=== PATIENT | male | born 1975 | race Caucasian/White ===

== ENCOUNTER 2019-01-16 20:44 | Emergency (ER) | payer OTHER ==
[2019-01-16] MEDS ORDERED: Cyclobenzaprine 10 MG Tab PO ONE (20:45)
[2019-01-17 00:13] VITALS: BP 121/92; PULSE 60
--- NOTE | 2019-01-17 01:26 | EDM.PDOC ---
ED HPI GENERAL MEDICAL PROBLEM - General Chief Complaint: Back Pain or Injury Stated Complaint: WORKERS COMP, BACK INJURY Time Seen by Provider: 01/17/19 01:19 Source of Information: Reports: Patient - History of Present Illness INITIAL COMMENTS - FREE TEXT/NARRATIVE: mid back pain, radiates to left shoulder blade and left buttock. 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 Denies prior back injury. No numbness or tingling. Has taken ibuprofen right after injury. 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, NSAIDS Left Lower Back Pain Score (Numeric/FACES): 3 - Related Data Allergies Allergy/AdvReac Type Severity Reaction Status Date / Time codeine Allergy Severe Anaphylactic Verified 09/05/14 14:23 MST Shock Home Meds: Home Meds Acetaminophen/oxyCODONE [Percocet 325-5 MG] 1 each PO Q6HR PRN #14 tab 09/05/14 [Rx] Tamsulosin [Tamsulosin 24 Hr] 0.4 mg PO DAILY #7 cap.er 09/05/14 [Rx] Lisinopril 10 mg PO DAILY 02/08/18 [History] Past Medical History - Past Health History Medical/Surgical History: Denies Medical/Surgical History Neurological History: Reports: CVA Social & Family History - Family History Family Medical History: Noncontributory - Tobacco Use Smoking Status *Q: Unknown Ever Smoked Second Hand Smoke Exposure: No - Caffeine Use Caffeine Use: Reports: Soda ED ROS GENERAL - Review of Systems Review Of Systems: ROS reveals no pertinent complaints other than HPI. ED EXAM,LOWER BACK PAIN/INJURY - Physical Exam Exam: See Below Exam Limited By: No Limitations General Appearance: Alert, Mild Distress Eye Exam: Bilateral Eye: EOMI Ears: Normal External Exam Nose: Normal Inspection Throat/Mouth: Normal Inspection Head: Atraumatic, Normocephalic Neck: Normal Inspection, Full Range of Motion Respiratory/Chest: No Respiratory Distress Cardiovascular: Normal Peripheral Pulses, Regular Rate, Rhythm Back Exam: Full Range of Motion, Muscle Spasm (left mid to low lumbar), Paraspinal Tenderness. No: Vertebral Tenderness Extremities: Normal Range of Motion Neurological: Alert, Normal Mood/Affect, Normal Dorsiflexion, Normal Plantar Flexion, Normal Gait, No Motor/Sensory Deficits, Oriented x 3 Psychiatric: Normal Affect Skin Exam: Warm, Dry, Intact, Normal Color Course - Vital Signs Last Recorded V/S: Last Vital Signs Temp 97.8 F 01/17/19 00:10 Pulse 60 01/17/19 00:10 Resp 18 01/17/19 00:10 BP 121/92 H 01/17/19 00:10 Pulse Ox 100 01/17/19 00:10 - Orders/Labs/Meds Meds: Medications Discontinued Medications Generic Name Dose Route Start Last Admin Trade Name Freq PRN Reason Stop Dose Admin Cyclobenzaprine HCl Confirm 01/17/19 01:28 Flexeril Administered 01/17/19 01:29 Dose 20 mg .ROUTE .STK-MED ONE Departure - Departure Time of Disposition: 01:34 Disposition: Home, Self-Care 01 Condition: Good Clinical Impression: Back pain due to injury - Discharge Information *PRESCRIPTION DRUG MONITORING PROGRAM REVIEWED*: No *COPY OF PRESCRIPTION DRUG MONITORING REPORT IN PATIENT KEN: No Instructions: Back Exercises, [id number] Forms: ED Department Discharge Additional Instructions: ice to back area light activity off work x 2 nights may return if symptoms resolved Recheck clinic early next week ibuprofen 600mg every 6 hours as needed for back pain flexeril 10mg every 8 hours as needed for muscle spasm
[2019-01-17] MEDS ORDERED: Cyclobenzaprine 10 MG Tab ONE (01:28)
== END 2019-01-17 01:46 | disposition home or self-care (01) ==
LOC: DL.ED 20:44
DX: M62.830 Muscle spasm of back (principal); M54.6 Pain in thoracic spine; Z88.5 Allergy status to narcotic agent; Z79.899 Other long term (current) drug therapy
CPT/HCPCS: 99282; A9270

== ENCOUNTER 2019-04-11 17:04 | Emergency (ER) | payer SELFPAY ==
[2019-04-11 17:17] VITALS: BP 123/100
--- NOTE | 2019-04-11 17:41 | EDM.PDOC ---
Scribed by Wendy Beasley 04/11/19 [id number] for Trae Doty MD ED HPI GENERAL MEDICAL PROBLEM - General Chief Complaint: Gastrointestinal Problem Stated Complaint: CDIFF OR POISONING Time Seen by Provider: 04/11/19 17:22 Source of Information: Reports: Patient, RN, RN Notes Reviewed History Limitations: Reports: No Limitations - History of Present Illness INITIAL COMMENTS - FREE TEXT/NARRATIVE: Patient presents to ER stating he was treated for strep 2 weeks ago with Clindamycin for five days; since then has had watery loose stools. 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 He took Bendaryl which helped; no rash reported today. Suddenly during the night, the patient awoke feeling unwell. He began to have abdominal cramping and innumerable, loose, explosive stools. Stools are reportedly yellow in color and extremely malodorous. The patient has also developed some nausea and had two episodes of emesis. The patient does report taking immodium for his diarrhea. Mild occasionally productive cough continues. No other concerns reported. Onset: Gradual Duration: Constant Location: Reports: Generalized Quality: Reports: Ache Severity: Moderate Improves with: Reports: None Worsens with: Reports: None Associated Symptoms: Reports: No Other Symptoms, Fever/Chills (chills), Malaise , Nausea/Vomiting - Related Data Allergies Allergy/AdvReac Type Severity Reaction Status Date / Time codeine Allergy Severe Anaphylactic Verified 04/11/19 17:10 Shock Home Meds: Home Meds Famotidine [Pepcid] 40 mg PO DAILY 04/11/19 [History] Past Medical History - Past Health History Medical/Surgical History: Denies Medical/Surgical History Cardiovascular History: Reports: Hypertension (Not currently being treated.) Neurological History: Reports: CVA Social & Family History - Family History Family Medical History: Noncontributory - Tobacco Use Smoking Status *Q: Never Smoker Second Hand Smoke Exposure: No - Caffeine Use Caffeine Use: Reports: Soda - Recreational Drug Use Recreational Drug Use: No ED ROS GENERAL - Review of Systems Review Of Systems: See Below Constitutional: Reports: Chills, Malaise HEENT: Reports: No Symptoms Respiratory: Reports: Cough Cardiovascular: Reports: No Symptoms Endocrine: Reports: No Symptoms GI/Abdominal: Reports: Abdominal Pain, Diarrhea, Nausea, Vomiting : Reports: No Symptoms Musculoskeletal: Reports: No Symptoms Skin: Reports: No Symptoms Neurological: Reports: No Symptoms Hematologic/Lymphatic: Reports: No Symptoms ED EXAM, GENERAL - Physical Exam Exam: See Below Exam Limited By: No Limitations General Appearance: Alert, Mild Distress Throat/Mouth: Normal Inspection Head: Atraumatic, Normocephalic Neck: Normal Inspection Respiratory/Chest: No Respiratory Distress, Normal Breath Sounds Cardiovascular: Regular Rate, Rhythm, No Murmur GI/Abdominal: Tender, Abnormal Bowel Sounds (Hyperactive bowel sounds, mild generalized tenderness) Extremities: No Pedal Edema, Normal Capillary Refill Neurological: Alert, Oriented, CN II-XII Intact Skin Exam: Warm, Dry, No Rash Course - Vital Signs Last Recorded V/S: Last Vital Signs Temp 99.0 F 04/11/19 17:16 Pulse 118 H 04/11/19 17:16 Resp 16 04/11/19 17:16 BP 123/100 H 04/11/19 17:16 Pulse Ox 98 04/11/19 17:16 - Orders/Labs/Meds Orders: Active Orders 24 hr Category Date Time Status CLOSTRIDIUM DIFFICILE TOX RFLX [MREF] Stat Lab 04/11/19 17:54 Ordered URINALYSIS W/MICROSCOPIC [UA W/MICROSCOPIC] [URIN] Stat Lab 04/11/19 17:56 Ordered Sodium Chloride 0.9% [Normal Saline] 1,000 ml Med 04/11/19 17:57 Active IV .BOLUS Isolation [COMM] Stat Oth 04/11/19 17:55 Ordered Medication Orders Sodium Chloride (Normal Saline) 1,000 mls @ 999 mls/hr IV .BOLUS ONE Stop: 04/11/19 18:57 Last Admin: 04/11/19 18:12 Dose: 999 mls/hr Labs: Laboratory Tests 04/11/19 04/11/19 Range/Units 18:05 18:05 WBC 13.2 H (5.0-10.0) 10^3/uL RBC 5.52 (4.6-6.2) 10^6/uL Hgb 17.3 (14.0-18.0) g/dL Hct 49.6 (40.0-54.0) % MCV 89.9 (80-100) fL MCH 31.3 (27.0-34.0) pg MCHC 34.9 (33.0-35.0) g/dL Plt Count 205 (150-450) 10^3/uL Neut % (Auto) 89.0 H (42.2-75.2) % Lymph % (Auto) 4.1 L (20.5-50.1) % [place] % (Auto) 6.5 (2-8) % Eos % (Auto) 0.2 L (1.0-3.0) % Baso % (Auto) 0.2 (0.0-1.0) % Sodium 140 (135-145) mmol/L Potassium 3.9 (3.6-5.0) mmol/L Chloride 104 (101-111) mmol/L Carbon Dioxide 26.0 (21.0-31.0) mmol/L Anion Gap 13.9 BUN 18 (7-18) mg/dL Creatinine 1.3 (0.6-1.3) mg/dL Est Cr Clr Drug Dosing 69.42 mL/min Estimated GFR (MDRD) 60 Glucose 107 H (74-105) mg/dL Calcium 9.4 (8.4-10.2) mg/dl Amylase 60 (28-100) U/L Lipase 30 (22-51) U/L Meds: Medications Generic Name Dose Route Start Last Admin Trade Name Freq PRN Reason Stop Dose Admin Sodium Chloride 1,000 mls @ 999 mls/hr 04/11/19 17:57 04/11/19 18:12 Normal Saline IV 04/11/19 18:57 999 mls/hr .BOLUS ONE Administration Discontinued Medications Generic Name Dose Route Start Last Admin Trade Name Freq PRN Reason Stop Dose Admin Ondansetron HCl 4 mg 04/11/19 17:57 04/11/19 18:12 Zofran IV 04/11/19 17:58 4 mg ONETIME ONE Administration Departure - Departure Time of Disposition: 18:52 Disposition: Home, Self-Care 01 Condition: Good Clinical Impression: Diarrhea of presumed infectious origin, Abdominal pain - Discharge Information *PRESCRIPTION DRUG MONITORING PROGRAM REVIEWED*: Not Applicable *COPY OF PRESCRIPTION DRUG MONITORING REPORT IN PATIENT KEN: Not Applicable Forms: ED Department Discharge Additional Instructions: Drink extra fluid. Follow up in clinic on Sunday. Zofran PRN for nausea. Bentyl 20 QID PRN for abdominal cramping. - My Orders Last 24 Hours: My Active Orders 04/11/19 17:54 CLOSTRIDIUM DIFFICILE TOX RFLX [MREF] Stat 04/11/19 17:55 Isolation [COMM] Stat 04/11/19 17:56 URINALYSIS W/MICROSCOPIC [UA W/MICROSCOPIC] [URIN] Stat 04/11/19 17:57 Sodium Chloride 0.9% [Normal Saline] 1,000 ml IV .BOLUS - Assessment/Plan Last 24 Hours: My Active Orders 04/11/19 17:54 CLOSTRIDIUM DIFFICILE TOX RFLX [MREF] Stat 04/11/19 17:55 Isolation [COMM] Stat 04/11/19 17:56 URINALYSIS W/MICROSCOPIC [UA W/MICROSCOPIC] [URIN] Stat 04/11/19 17:57 Sodium Chloride 0.9% [Normal Saline] 1,000 ml IV .BOLUS I have read and agree with the documentation that has been completed regarding this visit. By signing this record, I attest that the documentation was completed in my physical presence and is an accurate record of the encounter.
[2019-04-11] MEDS ORDERED: Sodium Chloride 0.9% 1,000 ML IV ONE (17:57)
[2019-04-11] MEDS ORDERED: Ondansetron 4 MG/2 ML SDV IV ONE (17:57)
[2019-04-11 18:37] LABS: ANION GAP 13.9
== END 2019-04-11 19:19 | disposition home or self-care (01) ==
LOC: DL.ED 17:04
DX: R19.7 Diarrhea, unspecified (principal); R10.84 Generalized abdominal pain; I10 Essential (primary) hypertension; Z79.899 Other long term (current) drug therapy; Z88.6 Allergy status to analgesic agent
CPT/HCPCS: 36415; 80048; 82150; 83690; 85025; 96361; 96374; 99284; J2405; J7030

== ENCOUNTER 2019-10-01 21:00 | Emergency (ER) | payer MEDICAID, OTHER ==
[2019-10-01 21:10] VITALS: BP 138/96; PULSE 77
[2019-10-01] MEDS ORDERED: Sodium Chloride 0.9% 10 ML Syringe FLUSH PRN (21:30)
[2019-10-01] MEDS ORDERED: Pantoprazole 40 MG Vial IVPUSH ONE (21:31)
[2019-10-01 21:51] LABS: ANION GAP 9.5; CHLORIDE,CL 105 mmol/L (101-111); SODIUM,NA 137 mmol/L (135-145)
--- NOTE | 2019-10-01 22:50 | EDM.PDOC ---
ED HPI GENERAL MEDICAL PROBLEM - General Chief Complaint: Gastrointestinal Problem Stated Complaint: POSS GI BLEED Time Seen by Provider: 10/01/19 21:25 Source of Information: Reports: Patient History Limitations: Reports: No Limitations - History of Present Illness INITIAL COMMENTS - FREE TEXT/NARRATIVE: patient comes emergency department today with complaints of his black tarry stools. Over the past 2-3 days he has noticed that he has had black and tarry stools. He has been struggling with heartburn/GERD for the past 2-3 months. He has been started on Nexium twice a day. His symptoms have somewhat improved. He does take ibuprofen 800 mg 3 times a day for the past many months as well for headaches. He has never had an EGD. He has no abdominal pain. No weakness dizziness lightheadedness. No syncope. No chest pain or shortness of breath or difficulty breathing. He has never been tested for H pylori disease. he has never had a colonoscopy. His primary care was going to send him up for an EGD but since his symptoms did somewhat improve with the double dose of Nexium have not done this yet.He is under quite a bit of stress recently. He denies smoking. He is supposed to be on aspirin which he does not take. Headache Pain Score (Numeric/FACES): 6 - Related Data Allergies Allergy/AdvReac Type Severity Reaction Status Date / Time codeine Allergy Severe Anaphylactic Verified 04/11/19 17:10 Shock Home Meds: Home Meds Esomeprazole Magnesium [Nexium] 20 mg PO DAILY 10/01/19 [History] Past Medical History - Past Health History Medical/Surgical History: Denies Medical/Surgical History Cardiovascular History: Reports: Hypertension Gastrointestinal History: Reports: GERD Genitourinary History: Reports: Renal Calculus Neurological History: Reports: CVA - Infectious Disease History Infectious Disease History: Reports: Chicken Pox Social & Family History - Family History Family Medical History: Noncontributory - Tobacco Use Smoking Status *Q: Never Smoker Second Hand Smoke Exposure: No - Caffeine Use Caffeine Use: Reports: Soda - Recreational Drug Use Recreational Drug Use: No ED ROS GENERAL - Review of Systems Review Of Systems: Comprehensive ROS is negative, except as noted in HPI. ED EXAM, RENAL/ - Physical Exam Exam: See Below Exam Limited By: Altered Mental Status General Appearance: Alert, WD/WN, No Apparent Distress Ears: Normal External Exam, Normal Canal, Normal TMs Throat/Mouth: Normal Inspection, Normal Oropharynx Head: Atraumatic Neck: Normal Inspection, Supple, Non-Tender Respiratory/Chest: No Respiratory Distress, Lungs Clear, Normal Breath Sounds, No Accessory Muscle Use, Chest Non-Tender Cardiovascular: Normal Peripheral Pulses, Regular Rate, Rhythm, No Edema GI/Abdominal: Normal Bowel Sounds, Soft, Non-Tender, No Abnormal Bruit Back Exam: Normal Inspection, Full Range of Motion Extremities: Normal Inspection, Normal Range of Motion, Normal Capillary Refill Neurological: Alert, Oriented, Normal Cognition, Normal Gait, No Motor/Sensory Deficits Psychiatric: Normal Affect Skin Exam: Warm, Dry, Intact, Normal Color, No Rash EKG INTERPRETATION EKG Date: 10/02/19 Time: 21:52 Rhythm: NSR Rate (Beats/Min): 63 [place]: Normal P-Wave: Present QRS: Normal ST-T: Normal QT: Normal Course - Vital Signs Last Recorded V/S: Last Vital Signs Temp 36.5 C 10/01/19 21:04 Pulse 77 10/01/19 21:04 Resp 16 10/01/19 21:04 BP 138/96 H 10/01/19 21:04 Pulse Ox 100 10/01/19 21:04 - Orders/Labs/Meds Orders: Active Orders 24 hr Category Date Time Status EKG 12 Lead [EKG Documentation Completion] [RC] URGENT Care 10/01/19 21:30 Active Peripheral IV Care [RC] . DIRECTED Care 10/01/19 21:30 Active Hemoccult, Stool [OCCULT BLOOD DIAGNOSTIC] [OP] Stat Lab 10/01/19 21:31 Ordered Peripheral IV Insertion Adult [OM.PC] Stat Oth 10/01/19 21:30 Ordered Labs: Laboratory Tests 10/01/19 10/01/19 10/01/19 Range/Units 21:20 21:20 21:20 WBC 7.9 (5.0-10.0) 10^3/uL RBC 4.85 (4.6-6.2) 10^6/uL Hgb 15.5 D (14.0-18.0) g/dL Hct 43.9 (40.0-54.0) % MCV 90.5 (80-100) fL MCH 32.0 (27.0-34.0) pg MCHC 35.3 H (33.0-35.0) g/dL Plt Count 210 (150-450) 10^3/uL Neut % (Auto) 58.9 (42.2-75.2) % Lymph % (Auto) 26.1 (20.5-50.1) % [place] % (Auto) 11.8 H (2-8) % Eos % (Auto) 2.7 (1.0-3.0) % Baso % (Auto) 0.5 (0.0-1.0) % PT 9.7 (9.0-12.0) SEC INR 0.9 (0.9-1.2) APTT 27.8 (22.0-34.0) SEC Sodium 137 (135-145) mmol/L Potassium 3.5 L (3.6-5.0) mmol/L Chloride 105 (101-111) mmol/L Carbon Dioxide 26.0 (21.0-31.0) mmol/L Anion Gap 9.5 BUN 17 (7-18) mg/dL Creatinine 1.2 (0.6-1.3) mg/dL Est Cr Clr Drug Dosing 76.47 mL/min Estimated GFR (MDRD) > 60 BUN/Creatinine Ratio 14.16 Glucose 104 (74-105) mg/dL Calcium 8.8 (8.4-10.2) mg/dl Total Bilirubin 0.7 (0.2-1.0) mg/dL AST 22 (10-42) IU/L ALT 22 (10-60) IU/L Alkaline Phosphatase 73 (42-121) IU/L Troponin I < 0.02 (0.00-0.02) ng/ml Total Protein 6.8 (6.7-8.2) g/dl Albumin 4.1 (3.2-5.5) g/dl Globulin 2.7 Albumin/Globulin Ratio 1.52 Meds: Medications Discontinued Medications Generic Name Dose Route Start Last Admin Trade Name Freq PRN Reason Stop Dose Admin Pantoprazole Sodium 40 mg 10/01/19 21:31 10/01/19 21:42 Protonix Iv IVPUSH 10/01/19 21:32 40 mg ONETIME ONE Administration Sodium Chloride 10 ml 10/01/19 21:30 10/01/19 21:42 Saline Flush FLUSH 10 ml ASDIRECTED PRN Administration Keep Vein Open - Re-Assessments/Exams Free Text/Narrative Re-Assessment/Exam: 10/02/19 00:04 EKG was normal. His laboratory evaluation was rather unremarkable and his hemoglobin is 15. He is given Protonix IV push. This is most likely peptic ulcer causative from the amount of NSAID usage and his GERD history. He really needs an EGD at this time. We will attenuate his Nexium dosing and add Carafate 4 times a day. Have him follow-up with his primary care tomorrow by phone to get an EGD scheduled as well as testing for H. pylori. If he has increased bleeding weakness dizziness or syncope is to recheck. He is comfortable with this plan his questions are answered. Departure - Departure Time of Disposition: 22:48 Disposition: Home, Self-Care 01 Clinical Impression: GI hemorrhage Qualifiers: GI bleed type/associated pathology: unspecified gastrointestinal hemorrhage type Qualified Code(s): K92.2 - Gastrointestinal hemorrhage, unspecified - Discharge Information Instructions: Gastrointestinal Bleeding, [id number] Referrals: PCP,None [Ordering Only Provider] - Forms: ED Department Discharge Additional Instructions: Discontinue the usage of the NSAIDs, Ibuprofen Motrin Aleve Naproxen. Try Tylenol instead. Continue with the Nexium. Start Carafate, 1 tablet 4 times a day for the next 28 days. RX given to the patient. 1/2 hr before meals and bedtime. Contact your PCP tomorrow and update on ER visit and get an EGD scheduled. Return to the ED if new or worsening symptoms. Sepsis Event Note - Evaluation Sepsis Screening Result: No Definite Risk - Focused Exam Vital Signs: Vital Signs Temp Pulse Resp BP Pulse Ox 10/01/19 21:04 36.5 C 77 16 138/96 H 100 Date Exam was Performed: 10/02/19 Time Exam was Performed: 00:01 - My Orders Last 24 Hours: My Active Orders 10/01/19 21:30 EKG 12 Lead [EKG Documentation Completion] [RC] URGENT Peripheral IV Care [RC] . DIRECTED Peripheral IV Insertion Adult [OM.PC] Stat 10/01/19 21:31 Hemoccult, Stool [OCCULT BLOOD DIAGNOSTIC] [OP] Stat - Assessment/Plan Last 24 Hours: My Active Orders 10/01/19 21:30 EKG 12 Lead [EKG Documentation Completion] [RC] URGENT Peripheral IV Care [RC] . DIRECTED Peripheral IV Insertion Adult [OM.PC] Stat 10/01/19 21:31 Hemoccult, Stool [OCCULT BLOOD DIAGNOSTIC] [OP] Stat Assessment:: GI hemorrhage, ? Peptic ulcer Plan: Discontinue the usage of the NSAIDs, Ibuprofen Motrin Aleve Naproxen. Try Tylenol instead. Continue with the Nexium. Start Carafate, 1 tablet 4 times a day for the next 28 days. RX given to the patient. 1/2 hr before meals and bedtime. Contact your PCP tomorrow and update on ER visit and get an EGD scheduled. Return to the ED if new or worsening symptoms.
== END 2019-10-01 23:11 | disposition home or self-care (01) ==
LOC: DL.ED 21:00
DX: K92.2 Gastrointestinal hemorrhage, unspecified (principal); K21.9 Gastro-esophageal reflux disease without esophagitis; Z86.73 Personal history of transient ischemic attack (TIA), and cerebral infarction without residual deficits; I10 Essential (primary) hypertension; Z88.5 Allergy status to narcotic agent; Z79.899 Other long term (current) drug therapy
CPT/HCPCS: 36415; 80053; 84484; 85025; 85610; 85730; 93005; 96374; 99284; C9113